=== PATIENT | female | born 1985 | race Caucasian/White ===

== ENCOUNTER → 2017-03-25 | Outpatient (CLI) | payer BC, OTHER ==
[~2017-03-25] MED LIST: CITA20TA17 PO; FLUT16SP12 NS; GADOBUTROL 10mMol/10ml INJECTION IV ONE; PREN1TAB53 PO; SALINE FLUSH 10ml SYRINGE ONE
--- NOTE | 2017-03-25 15:11 | DI ---
EXAM: MRI CERVICAL SPINE W/WO CONTRA LOCATION OF DICTATION: [facility] HISTORY: ITS.REASON: R20.2 Paresthesia of skin left-sided radiculopathy. History Chiari malformation. COMPARISON: No prior studies available for comparison. TECHNIQUE: Multiplanar, multisequence, cervical spine protocol MR imaging with and without contrast of the spine was acquired. CONTRAST: 7.5 ml of Gadavist given Intravenously. FINDINGS: There is preservation of cervical lordosis without subluxation. No acute fractures are demonstrated. Normal signal is present throughout the vertebral bodies. Mild Chiari I for malformation noted. The foramen magnum, subarachnoid space, and cervical spinal cord demonstrate no significant abnormality. There is no evidence for cervical cord syrinx. There is multilevel degenerative disc disease with loss of disc space height and signal at several levels and endplate spurring. The prevertebral and paraspinal soft tissues are without identified abnormality. \E\ Segmental analysis: At the C2-C3 level there is no significant spinal canal or foraminal compromise. At the C3-4 level there is a left paracentral posterior disc osteophyte complex resulting in moderate left lateral recess stenosis. At the C4-5 level there is posterior disc osteophyte complex without significant central spinal stenosis. There is mild left lateral recess narrowing. At the C5-C6 level there is mild disc bulge without significant central spinal or neuroforaminal stenosis. At the C6-C7 level there is mild disc bulge without significant central spinal or neuroforaminal stenosis. At the C7-T1 level there is no significant central spinal or neuroforaminal stenosis. IMPRESSION: 1. Normal alignment of the cervical spine without subluxation or acute fracture. 2. Chiari I malformation suggested. No evidence for cervical cord syrinx 3. Nonspecific T1 signal within the subarachnoid space anterior to the spinal cord at the C2-3 level. This structure does not appear to enhance or result in significant mass effect. The findings could represent artifact. 4. At the C3-4 level there is moderate left lateral recess stenosis. .
== END ==
LOC: IMA.MDS 13:37
PROVIDERS: ATTEND Electrodiagnostic Medicine
DX: M48.02 Spinal stenosis, cervical region (principal); R93.8 Abnormal findings on diagnostic imaging of other specified body structures; R20.2 Paresthesia of skin

== ENCOUNTER 2018-05-19 05:31 | Inpatient (IN) ==
--- OUTSIDE RECORDS SUMMARY | 2018-05-19 05:37 | External Medical Summary | Continuity of Care Document ---
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) w/o 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 Previous Low Transverse - Encounter for suprvsn of normal - , second trimester 27 weeks gestation of - Previous Low Transverse - Encounter for suprvsn of normal - , second trimester 14 weeks gestation of - Previous Low Transverse - Other general symptoms and signs - 19 weeks gestation of - Other specified health status - Previous Low Transverse - Endo, nutritional and metab diseases - comp preg, third tri Encounter for suprvsn of normal - , third trimester 29 weeks gestation of - Previous Low Transverse - Other general symptoms and signs - Encounter for suprvsn of normal - , second trimester 17 weeks gestation of - Previous Low Transverse - Encounter for suprvsn of normal - , second trimester 23 weeks gestation of - Other specified health status - Abnormal glucose complicating - Other general symptoms and signs - Encntr screen for infections w sexl - mode of transmiss Encounter for screening for oth - infec/parastc diseases Encounter for suprvsn of normal - , first trimester Encounter for screening of - mother 10 weeks gestation of - Other specified health status - Other general symptoms and signs - Encounter for suprvsn of normal - , first trimester Other specified health status - Encounter For Screening For - Malformations 19 weeks gestation of - Initiation of Oral Contraceptives - Active Procedures Procedure Date OB Visit No Charge Immuniz admnin, 1 vac, sngl/combo 19 Yrs + TDAP VACCINE >7 IM Automated hemogram (CBC) Glucose test Venpnctr fngr/heel/ear stick routne Results Test Name Date and Time Measure Units Reference Range Abnormal Flag Comments Panel Description: CBC With Differential/Platelet WBC 13:49:00 11.2 x10E3/uL 3.4-10.8 H RBC 13:49:00 4.08 x10E6/uL 3.77-5.28 Hemoglobin 13:49:00 11.8 g/dL 11.1-15.9 Hematocrit 13:49:00 36.2 % 34.0-46.6 MCV 13:49:00 89 fL 79-97 MCH 13:49:00 28.9 pg 26.6-33.0 MCHC 13:49:00 32.6 g/dL 31.5-35.7 RDW 13:49:00 13.3 % 12.3-15.4 Platelets 13:49:00 196 x10E3/uL 150-379 Neutrophils 13:49:00 80 % Not Estab. Lymphs 13:49:00 13 % Not Estab. Monocytes 13:49:00 5 % Not Estab. Eos 13:49:00 1 % Not Estab. Basos 13:49:00 0 % Not Estab. Immature Cells 13:49:00 Neutrophils (Absolute) 13:49:00 9.1 x10E3/uL 1.4-7.0 H Lymphs (Absolute) 13:49:00 1.4 x10E3/uL 0.7-3.1 Monocytes(Absolute) 13:49:00 0.6 x10E3/uL 0.1-0.9 Eos (Absolute) 13:49:00 0.1 x10E3/uL 0.0-0.4 Baso (Absolute) 13:49:00 0.0 x10E3/uL 0.0-0.2 Immature Granulocytes 13:49:00 1 % Not Estab. Immature Grans (Abs) 13:49:00 0.1 x10E3/uL 0.0-0.1 NRBC 13:49:00 Hematology Comments: 13:49:00 Panel Description: Glucose [Mass/volume] in Serum or Plasma --1 hour post 50 g glucose PO Gestational Diabetes Screen 13:49:00 147 mg/dL 65-135 H Advance Directives Directive Yes / No Effective Date File Name Unknown Encounters Encounter Practice Location Reason(s) Diagnoses Date Provider Care Team Description For Visit Members [facility] Previous Low Apr-2 Sobbing Referring In [facility] 7-201 [place]. Provider: Priya MAYBERRY, C-SectionEndo, 8 700 [address] PO Box nutritional and Medical [facility], 1522, metab diseases Center [address] [place], [facility], [facility], triEncounter for Suite Center [id number], suprvsn of normal 120, Drive [place] , third [place], [address], tel:+2 weeks [place], [place] [address], [place], [address]. [place]. tel: tel: [phone] Associates [facility] Abnormal glucose Apr-1 Sobbing Referring In Womens complicating 7-201 [place]. Provider: Priya MAYBERRY, 8 700 [address] [facility], 1522, Center [address], [facility], [facility], Suite Center , 120, Drive [place], [address], tel:+ [place], [address], [place], [address]. [place]. tel: tel: [phone] Christy Munoz Previous Low Apr-1 Sobbing Referring In Womens Transverse 2-201 [place]. Provider: Priya MAYBERRY C-SectionEncounte 8 700 [address] Box r for suprvsn [facility], 1522, normal , Center [address] [place], second [facility], [facility], weeks Suite Center , gestation of 120, Drive [place], [address], tel:+2 K[place]ander, [address], [place], [address]. [place]. tel: tel: [phone] Christy [place] Previous Low Mar-1 Sobbing Referring In Womens Transverse 5-201 [place]. Provider: Priya MAYBERRY, C-SectionEncounte 8 700 [address] Box r for suprn [facility], 1522, normal , Center [address] [place], second [facility], [facility], [id number] weeks Suite Center [id number], gestation of 120, Drive [place] pregnancyOther [place], [address], tel:+2 specified health [place], status [address], [place], [address]. [place]. tel: tel: [phone] Christy [place] Previous Low Dec-1 Sobbing Referring In Womens Transverse 5-201 [place]. Provider: Priya MAYBERRY, C-SectionOther 8 700 [address] PO Box general symptoms Medical [place], 1522, and signs19 weeks Center [address], gestation of Drive, Medical [place], pregnancyOther Suite Center [id number], specified health 120, Drive [place] status [place], [address], tel: [place], [address], [place], [address]. [place]. tel: tel: [phone] Christy Munoz Encounter For Dec- Sobbing Referring In Womens Ultrasound 5-201 [place]. Provider: Priya MAYBERRY, Screening For 8 700 [address] PO Box [id number] Medical [facility], 1522, weeks gestation Center [address] [place], of [facility], [facility], Suite Center , 120, Drive [place], [address], tel: [place], [address], [place], [address]. [place]. tel: tel: [phone] Christy Munoz Previous Low Feb-0 Sobbing Referring In Womens Transverse 5-201 [place]. Provider: Priya MAYBERRY, C-SectionOther 8 700 [address] PO Box general symptoms Medical [facility], 1522, and Center [address] [place], signsEncounter [facility], for suprvsn of Suite Center , normal , 120, Drive [place] second [place], [address], tel: [email or web address] weeks [place], [place] [address], [place], [address]. [place]. tel: tel: [phone] Christy Munoz Previous Low Nov- Sobbing Referring In Womens Transverse 1-201 [place]. Provider: Priya MAYBERRY, C-SectionEncounte 8 700 [address] PO Box r for suprvsn of [facility], 1522, normal , Center [address] [place], second [facility], [id number] weeks Suite Center , gestation of 120, Drive [place], [address], tel: [place], [address], [place], [address]. [place]. tel: tel: [phone] Associates Alexander Other general Jere-0 Henry Referring In Womens symptoms and 2-201 [place]. Provider: Priya MAYBERRY, signsEncounter 8 700 [address] PO Box for suprvsn of [facility], 1522, normal , Center [address], first Matt, [facility], trimesterOther 120, Center [id number], specified health [place], [facility] status [place], [address], tel: [phone] [place] , [place], [address]. tel: tel: [phone] Associates Alexander Olson general Dec-1 Sobbing Referring In Womens symptoms and 4-201 [place]. Provider: Priya MAYBERRY signsEncntr 7 700 [address] PO Box screen for [facility], 1522, infections w sexl Center [address], mode of Drive, [facility], transmissEncounte Suite Center , r for screening 120, Drive [place] for oth [place], [address], tel: infec/parastc [place], [place], diseasesEncounter [address], [place], [address]. for [facility]. tel: normal , tel: [phone] first [phone] trimesterEncounte r for screening of [id number] weeks gestation of pregnancyOther specified health status Associates [facility] Encntr for knot cutter Jun- Duarte Referring In Womens exam (general) 5-201 [place]. Provider: Priya MAYBERRY, (routine) w/o abn 6 700 [place] PO Box findings Medical [place] 1522, Center A, [address], [facility], 120, Center [id number], [place], [facility], [address], tel: [phone] [place] , [place], [address]. tel: tel: [phone] Christy [place] Sep-0 [place] In Womens 6-201 [place]. Priya MAYBERRY, 2 700 PO Box Medical 1522, Center Dr Mark, [facility] [place], 120, [id number], [facility], tel: [phone] , . tel:[phone] Family History Family Member Diagnosis Age At Onset No family history of Diabetes No family history of Hypertension No family history of Osteoporosis No family history of Breast Cancer No family history of Thyroid Disorder No family history of Kidney Problems No family history of Colon Cancer Maternal Grandmother Cardiovascular Disease No family history of Lung Disease No family history of Stroke No family history of Ovarian Cancer No family history of Epilepsy Immunizations Vaccine Date Status Comments Tdap completed Source: New Immunization Record Payers Payer name Insurance type Covered democrat ID Authorization(s) BCBS [place] [id number] BCBS [facility] [id number] BCBS [place] [id number] Social History Type Description Quantity Date Captured Alcohol Use Details No Caffeine Use Details Unknown Tobacco Use Status Unknown Smoking Status Never smoker Vital Signs Date / Height Weight BMI Pulse Blood Temperature Respiratory Body Head BMI Time: Rate Pressure Rate Surface Circumference percentile Area 195.60 30.6 116/2018 lbs 3 mm[Hg] 1:16 kg/m PM eter (2) Chief Complaint And Reason For Visit Unknown Chief Complaint And Reason For Visit Reason For Referral Reason For Referral Unknown Plan Of Care Date Type Action Status Appointment Harriet Graves BOOKED Appointment Harriet Graves BOOKED Appointment Harriet Graves [facility] [place]/S- MB BOOKED Assist Future Order: Lab Order Pap Smear With HPV Reflex If ASCUS Ordered (WPMPap1), Collected on: Future Order: Lab Order Pap Smear With High Risk HPV Ordered (WPMPap2) Future Order: Radiology Order Complete OB Ultrasound > 14 Ordered Weeks ([id number]) Date Type Problem Goal Intervention Status Start Date Unknown. History Of Present Illness Encounter Date Complaint History Of Present Illness This patient has no known history of present illness Functional Status Encounter Date Functional Assessment Cognitive Assessment Unknown Medications Administered Medication Instructions Dosage Effective Dates (start - stop) Status Comments Drug Treatment Unknown Instructions Date Instruction Additional Information indications for ultrasound influenza vaccine environmental / work hazards HIV and other routine tests risk factors identified by history anticipated course of care nutrition and weight gain counseling, special diet toxoplasmosis precautions (cats / raw meat) sexual activity exercise travel use of any medications (including supplements, vitamins, herbs, OTC drugs) domestic violence seat belt use childbirth classes / hospital facilities hospital registration genetic testing
--- OUTSIDE RECORDS SUMMARY | 2018-05-19 05:38 | External Medical Summary | Continuity of Care Document ---
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 Provider: Gladys EnamoradoSectionKilliano, 8 700 [address] PO Box nutritional and Medical [facility], 1522, metab diseases Center 700 [place], [facility] preg, third [facility], [facility] Suite Center [id number], suprvsn of normal 120, Drive [place] , third [place], [address], tel:+2 [id number] weeks [place], [address] [place] [address], [place], [address]. [place]. tel: tel: [phone] Christy Munoz Feb- Sobbing In Womens 8-201 [place]. Priya MAYBERRY, 8 700 PO Box Medical 1522, Center [place], [facility], [place], [address] [id number], 120, [place], tel: [place], [address], [place]. tel: [phone] Associates [facility] Pedraza Abnormal glucose Apr-1 Sobbing Referring In Womens complicating 7-201 [place]. Provider: Priya MAYBERRY, 8 [address] Box [facility], 1522, Center 700 [place], [facility], [facility], Suite Center [id number], 120, Drive [place], [address], tel:+ SYED, [place], [address], [place], [address]. [place]. tel: tel: [phone] Associates Alexander Previous Low Apr-1 Sobbing Referring In Womens Transverse 2-201 [place]. Provider: Priya MAYBERRY, C-SectionEncounte 8 700 [address] PO Box [facility], 1522, normal , Center 700 [place], [facility], [facility], [id number] weeks Suite Center , gestation of 120, Drive [place], [address], tel:+ SYED, [place], [address], [place], [address]. [place]. tel: tel: [phone] Associates Alexander Previous Low Mar-1 Sobbing Referring In Womens Transverse 5-201 [place]. Provider: Priya MAYBERRY, C-SectionEncounte 8 700 [facility] Box r for [facility], 1522, normal , Center 700 [place], [facility], [facility], [id number] weeks Suite Center [id number], gestation of 120, Drive [place] pregnancyOther [place], [address], tel:+ specified health [place], [place], [place] [address], [place], [address]. [place]. tel: tel: [phone] Associates Alexander Previous Low Feb-1 [place] Referring In Womens Transverse 5-201 [place]. Provider: Priya MAYBERRY, C-SectionOther 8 700 [address] PO Box general symptoms Medical [facility], 1522, and signs19 weeks Center [address] [place], gestation of Drive, Medical [place], pregnancyOther Suite Center [id number], specified health 120, Drive [place] status [place], [address], tel: SYED, [place], [address], [place], [address]. [place]. tel: tel: [phone] Associates Alexander Encounter For Feb-1 Sobbing Referring In Womens Ultrasound 5- [place]. Provider: Health JEFE, Screening For 8 700 [address] PO Box [id number] Medical [facility], 1522, weeks gestation Center 700 [place], of [facility], Suite Center [id number], 120, Drive [place], [address], tel:+ [place], [address], [place], [address]. [place]. tel: tel: [phone] Associates Alexander Previous Low Feb-0 Sobbing Referring In Womens Transverse 5-201 [place]. Provider: Priya MAYBERRY, C-SectionOther 8 700 [address] PO Box general symptoms [facility], 1522, and Center 700 [facility], for suprvsn of Suite Center [id number], normal , 120, Drive [place] second [place], [address], tel:+ weeks [place], [place] [address], [place], [address]. [place]. tel: tel: [phone] Associates Alexander Previous Low Jere-1 Sobbing Referring In Womens Transverse - [place]. Provider: Priya MAYBERRY, C-SectionEncounte 8 700 [address] PO Box r for suprvsn of [facility], 152, normal , Center 700 [place], [facility], [id number] weeks Suite [address] [id number], gestation of 120, Drive [place], [address], tel: SYEDAlexander, [address], [place], [address]. [place]. tel: tel: [phone] Associates Alexander Other general Jere-0 Henry Referring In Womens symptoms and 2-201 [place]. Provider: Priya MAYBERRY signsEncounter 8 700 [address] PO Box for suprvsn of [facility], 1522, normal , Center [facility] first Vernell Flores, [facility], trimesterOther 120, Center [id number], specified health [place], [facility] status [place], [address], tel:[phone] [place], , [place], [address]. tel: tel:+ [phone] Associates Alexander Other general [place] Referring In Womens symptoms and 201 [place]. Provider: Health JEFE, signsEncntr 7 700 [address] PO Box screen for Medical [place], 1522, infections w sexl Center 700 [place], mode of Drive, Medical [place], transmissEncounte Suite [address] [id number], r for screening 120, Drive [place] for oth [place], [address], tel:+ infec/parastc [place], [place], diseasesEncounter [address], [place], . for suprvsn of . 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 Provider: Health JEFE, (routine) w/o abn 6 700 [address] PO Box findings Medical [place] 1522, Center A, [address], [facility], 120, Center [id number], [place], [facility], [address], tel:+ [phone] [place], , [place], [address]. tel: tel: [phone] Christy [place] Sep-0 [place] In Womens -201 [place]. Health JEFE, 2 700 PO Box Medical 1522, Center Dr Mark, [facility], 120, , [facility], tel: [phone] [address] , [place]. tel: [phone] Family History Family Member Diagnosis Age At [...] Record Payers Payer name Insurance type Covered green party ID Authorization(s) BCBS Out Of [place] [id number] BCBS [facility] [id number] BCBS Out Of [place] [id number] Social History Type Description Quantity Date Captured Unknown Vital Signs Date / Height Weight BMI Pulse Blood Temperature Respiratory Body Head BMI Time: Rate Pressure Rate Surface Circumference percentile Area Unknown Chief Complaint And Reason For Visit Unknown Chief Complaint And Reason For Visit Reason For Referral Reason For Referral Unknown Plan Of Care Date Type Action Status Appointment Harriet Graves BOOKED Appointment Harriet Graves BOOKED Appointment Harriet Graves [facility] [place] R C/S- MB BOOKED Assist Future Order: Lab Order Pap Smear With HPV Reflex If ASCUS Ordered (WPMPap1), Collected on: Future Order: Lab Order Pap Smear With High Risk HPV Ordered (WPMPap2) Future Order: Radiology Order Complete OB Ultrasound > 14 Ordered Weeks ([id number]) Date Type Problem Goal Intervention Status Start [...]
--- OUTSIDE RECORDS SUMMARY | 2018-05-19 05:38 | External Medical Summary | Continuity of Care Document ---
:1985 Author Organization [facility] Address [address] [place], [place] [id number] Phone Care Team Providers Name Role Phone [...] (start - stop) Clinical Status Encntr for ob/gyn exam (general) - (routine) w/o 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 Previous Low Transverse - Encounter for suprvsn of normal - , third trimester Encounter For Screening For - Streptococcus B 35 weeks gestation of - Previous Low Transverse [...] gestation of - Previous Low Transverse - Endo, nutritional and metab diseases - comp preg, third tri Encounter for suprvsn of normal - , third trimester 37 weeks gestation of - Previous Low Transverse - Encounter for suprvsn of normal - , third trimester 31 weeks gestation of - Previous Low Transverse - Other general symptoms and signs - Encounter for suprvsn of normal - , second trimester 17 weeks gestation of - Previous Low Transverse - Endo, nutritional and metab diseases - comp preg, third tri 36 weeks gestation of - Previous Low Transverse - Endo, nutritional and metab diseases - comp preg, third tri Abnormal glucose complicating - 33 weeks gestation of - Previous Low Transverse [...] Procedures Procedure Date OB Visit No Charge bogdan Cruz, screen Results Test Name Date and Time Measure Units Reference Range Abnormal Flag Comments Panel Description: Strep Gp B Culture Strep Gp B Positive Negative A Centers for Disease Control Culture 14:40:00 and Prevention (CDC) and [place] Congressof Obstetricians and Gynecologists (ACOG) guidelines for prevention ofperinatal group B streptococcal (GBS) disease specify co-collection ofa vaginal and rectal swab specimen to maximize sensitivity of GBSdetection. Per the CDC and ACOG, swabbing both the lower vagina andrectum substantially increases the yield of detection compared withsampling the vagina alone. .Penicillin G, ampicillin, or cefazolin are indicated for intrapartumprophylaxis of GBS colonization. Reflex susceptibilitytesting should be performed prior to use of clindamycin only on GBSisolates from penicillin-allergic women who are considered a high riskfor anaphylaxis. Treatment with vancomycin without additional testingis warranted if resistance to clindamycin is noted. Advance Directives Directive Yes / No Effective Date File Name Unknown Encounters Encounter Practice Location Reason(s) Diagnoses Date Provider Care Team Description For Visit Members Christy Munoz Previous Low Barry-2 Sobbing Referring In [facility] [place]. Provider: Gladys EnamoradoSectionRuth, 8 [address] [place] nutritional and Medical [facility], metab diseases Center [address] [place], comp preg, [facility], triEncounter for Suite Center [id number], suprvsn of normal 120, Drive [place] , third [place], [address], tel:+2 weeks [place], 7[address]62 [place] [address], [place], [address]. [place]. tel: tel: [phone] Christy Munoz Previous Low Barry-1 Sobbing Referring In [facility] 201 [place]. Provider: Gladys EnamoradoSectionKilliano, 8 [address] [employer] nutritional and Medical [facility], 1522, metab diseases Center [address] [place], comp preg, [facility], tri36 weeks Suite Center [id number], gestation of 120, Drive [place], [address], tel: SYEDAlexander, [address], [place], [address]. [place]. tel: tel: [phone] Associates Alexander Previous Low Barry-0 Sobbing Referring In [facility] Transverse 7-201 [place]. Provider: Nguyễn Enamorado-SectionEncounte [address] PO Box r for suprvsn [facility], 1522, normal , Center [address] [place], third [facility], [facility], trimesterEncounte Suite Center [id number], r For 120, Drive [place] Screening For [place]oz, [address], tel: Streptococcus B35 Alexander LYNCH, weeks gestation [address], [place], [address]. of [place]. tel: tel: [phone] Associates Alexander Previous Low May-2 Sobbing Referring In [facility] Transverse 5-201 [place]. Provider: Slava Enamorado, [address] PO Box nutritional and Medical [facility], 1522, metab diseases Center [address] [place], comp preg, third Drive, [facility], triAbnormal Suite Center [id number], glucose 120, Drive [place] complicating [place], [address], tel:+ [id number] weeks [place]ED[place], [place] [address], [place], [address]. [place]. tel: tel: [phone] Associates Alexander Previous Low May-1 Sobbing Referring In [facility]om[facility] Transverse 1-201 [place]. Provider: Gladys EnamoradoSectionEncounte [address] PO Box r for [facility], 1522, normal , Center [address] [place], third [id number], [facility] [place], weeks gestation Suite Center [id number], of 120, Drive [place], [address], tel:+ [place], [address], [place], [address]. [place]. tel: tel: [phone] Associates Alexander Previous Low Apr-2 Sobbing Referring In [facility]om[facility] Transverse 7-201 [place]. Provider: Gladys EnamoradoSectionEndo, 8 [address] PO Box nutritional and Medical [facility], 1522, metab diseases Center [address] [place], [facility] preg, third Drive, [facility], triEncounter for Suite Center , suprvsn of normal 120, Drive [place] , third [place], [address], tel:+ [id number] weeks [place], [place] [address], [place], [address]. [place]. tel: tel: [phone] Associates [facility] Abnormal glucose Apr-1 Sobbing Referring In Womens complicating 7-201 [place]. Provider: Health PA, [address] PO Box [facility], 1522, Center [address] [place], [facility], [facility], Suite Center , 120, Drive [place], [address], tel:+ [place] L[place]CH, [address], [place], [address]. [place]. tel: tel: [phone] Christy Munoz Previous Low Apr-1 Sobbing Referring In Wom[facility] Transverse 2-201 [place]. Provider: Health JEFE, C-SectionEncounte 8 [address] PO Box r for suprvsn of [facility], 1522, normal , Center 700 [place], second [facility], [facility], weeks Suite Center , gestation of 120, Drive [place], [address], tel:+ [place], [address], [place], [address]. [place]. tel: tel: [phone] Christy Munoz Previous Low Mar-1 Sobbing Referring In Wom[facility] Transverse 5-201 [place]. Provider: Health JEFE, C-SectionEncounte 8 [address] PO Box r for suprvsn [facility], 1522, normal , Center 700 [place], second [facility], [facility], [id number] weeks Suite Center , gestation of 120, Drive US pregnancyOther Munoz, [address], tel:2 specified health [place] LYNCH, status [address], [place], [address]. [place]. tel: tel: [phone] Christy Munoz Previous Low Feb-1 Sobbing Referring In [facility] Transverse 5-201 [place]. Provider: Health [place], C-SectionOther [address] PO Box general symptoms Medical [place], 1522, and signs19 weeks Center [address] [place], gestation of Drive, [facility], pregnancyOther Suite Center [id number], specified health 120, Drive [place] status [place], [address], tel:+ SYEDAlexander, [address], [place], [address]. [place]. tel: tel: [phone] Christy Munoz Encounter For Dec- Sobbing Referring In [facility] [place]. Provider: Health [place], Screening For 8 [address] PO Box [id number] Medical [place], 1522, weeks gestation Center [address] [place], of [facility], Suite Center , 120, Drive [place] Munoz, [address], tel:+ [place] LYNCH, [address], [place], [address]. [place]. tel: tel: [phone] Christy Munoz Previous Low Dec-0 Sobbing Referring In Womens Transverse -201 [place]. Provider: Health JEFE, C-SectionOther 8 [address] PO Box general symptoms Medical [facility], 1522, and Center [address] [place], signsEncounter [facility], [facility], for suprvsn of Suite Center , normal , 120, Drive US second Munoz, [address], tel:+ [id number] weeks [place], [place] [address], [place], [address]. [place]. tel: tel: [phone] Christy Munoz Previous Low Sobbing Referring In [facility] Transverse - [place]. Provider: Health JEFE, C-SectionEncounte 8 [address] PO Box r for suprvsn of [facility], 1522, normal , Center 700 [place], second [facility], [facility], [id number] weeks Suite Center [id number], gestation of 120, Drive [place] Mun[place], [address], tel:+ [place]CH, [address], [place], [address]. [place]. tel: tel: [phone] Christy Munoz Other general Jere-0 Henry Referring In Womens symptoms and 2 [place]. Provider: Priya MAYBERRY, signsEncounter [address] Box for suprvsn of [facility], 1522, normal , Center 700 first Vernell Flores, [facility], trimesterOther 120, Center , specified health Munoz, [facility] status [place], [address], tel:[phone] [place]oz, , [place], [address]. tel: tel:[phone] Associates Alexander Other Sobbing Referring In Womens symptoms and Le[place]. Provider: Priya MAYBERRY, signsEncntr 7 [address] PO Box screen for Medical [facility], 1522, infections w sexl Center 700 [place], mode of Drive, [facility], transmissEncounte Suite Center , r for screening 120, Drive [place] [facility], [address], tel:+ infec/parastc [place], [place], diseasesEncounter [address], [place], [address]. for suprvsn [facility]. tel:+ normal , tel: [phone] first [phone] trimesterEncounte r for screening of ummsla34 weeks gestation of pregnancyOther specified health status Associates Alexander Encntr for ob/gyn Duarte Referring In Womens exam (general) Lynda. Provider: Priya MAYBERRY, (routine) w/o abn 6 [address] PO Box findings Medical [facility] 1522, Center A, S[address], [facility], 120, Center , Munoz, [facility], [address], tel:+ [phone] [place], , [place], [address]. tel: tel: [phone] Christy Munoz Sep-0 Bibiana In Womens 6-201 [place]. Priya MAYBERRY, 2 700 PO Box Medical 1522, Center Dr Mark, [facility] [place], 120, [id number], [facility] [place], tel:[phone] , [place]. tel: [phone] Family History Family Member Diagnosis Age At [...] Record Payers Payer name Insurance type Covered constitution party ID Authorization(s) [employer] [facility] [id number] [facility] [facility] [id number] [employer] [facility] [id number] Social History Type Description Quantity Date Captured Alcohol Use Details No Caffeine Use Details Unknown Tobacco Use Status Unknown Smoking Status Never smoker Vital Signs Date / Height Weight BMI Pulse Blood Temperature Respiratory Body Head BMI Time: Rate Pressure Rate Surface Circumference percentile Area 204.70 32.0 lbs 6 2:06 kg/m PM eter (2) Chief Complaint And Reason For Visit Unknown Chief Complaint And Reason For Visit Reason For Referral Reason For Referral Unknown Plan Of Care Date Type Action Status Appointment Harriet Graves BOOKED Appointment Harriet Graves [facility] R C/S- MB BOOKED Assist Future Order: Lab Order Pap Smear With HPV Reflex If ASCUS Ordered ([id number]), Collected on: Future Order: Lab Order Pap Smear With High Risk HPV Ordered ([id number]) Future Order: Radiology Order Complete OB Ultrasound > 14 Ordered Weeks ([id number]) Date Type Problem Goal Intervention Status Start [...]
--- OUTSIDE RECORDS SUMMARY | 2018-05-19 05:38 | External Medical Summary | Continuity of Care Document ---
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 Encounter For Screening For - Malformations 19 weeks gestation of - Previous Low Transverse - Encounter for suprvsn of normal - , second trimester 14 weeks gestation of - Previous Low Transverse - Other general symptoms and signs - 19 weeks gestation of - Other specified health status - Previous Low Transverse - Other general symptoms and signs - Encounter for suprvsn of normal - , second trimester 17 weeks gestation of - Other general symptoms and signs - [...] first trimester Other specified health status - Initiation of Oral Contraceptives - Active Procedures Procedure Date Ultrasound exam of preg uterus, complete Results Test Name Date and Time Measure Units Reference Range Abnormal Flag Comments Unknown Advance Directives Directive Yes / No Effective Date File Name Unknown Encounters Encounter Practice Location Reason(s) Diagnoses Date Provider Care Team Description For Visit Members Christy Munoz Previous Low Feb-1 Sobbing [facility] [place] Provider: Priya MAYBERRY, C-SectionOther [address] PO Box general symptoms Medical [place], 1522, and signs19 weeks Center 700 [place], gestation of [facility], pregnancyOther Suite Center [id number], specified health 120, Drive [place] status [place], [address], tel:+4312 SYEDAlexander, [address], [place], [address]. [place]. tel:+ tel: [phone] Christy Munoz Encounter For Feb-1 Sobbing Referring In [facility]om[facility] Ultrasound [place]. Provider: Priya MAYBERRY, Screening For 8 [address] PO Box [id number] Medical [place], 1522, weeks gestation Center 700 [place], of [facility], Suite Center [id number], 120, Drive US [facility] [address], tel:+3162 SYEDAlexander, [address], [place], [address]. [place]. tel:+316 tel: [phone] Christy Munoz Previous Low Feb-0 Sobbing Referring In Womens [facility] [place]. Provider: Priya MAYBERRY, C-SectionOther 8 [address] PO Box general symptoms Medical [place], 1522, and Center 700 [place], signsEncounter [facility], for suprvsn of Suite Center [id number], normal , 120, Drive [place] second Munoz, [address], tel: [id number] weeks [place], [place] [address], [place], [address]. [place]. tel: tel: [phone] Associates Alexander Previous Low Jere-1 Sobbing Referring In Womens Transverse 1-201 [place]. Provider: Priya MAYBERRY, C-SectionEncounte 8 [address] PO Box [facility], 1522, normal , Center 700 [place], [facility], [facility], [id number] weeks Suite Center [id number], gestation of 120, Drive [place], [address], tel: [place]CH, [address], [place], [address]. [place]. tel: tel: [phone] Associates Alexander Other general Jere-0 Henry Referring In Womens symptoms and 2-201 [place]. Provider: Priya MAYBERRY signsEncountquincy 8 [address] PO Box for suprvsn of [facility], 1522, normal , Center [address], [facility], [facility], trimesterOther 120, Center , specified health [place], [facility] [place] status [place], [address], tel: [phone] [place] , [place], [address]. tel: tel: [phone] Associates Alexander Other general Dec-1 Sobbing Referring In Womens symptoms and 4-201 [place]. Provider: Priya MAYBERRY signsEncntr 7 [address] PO Box screen for [facility], 1522, infections w sexl Center 700 [place], mode of Drive, [facility], transmissEncounte Suite Center [id number], r for screening 120, Drive [place] for oth [place], [address], tel: infec/parastc Alexander LYNCH, diseasesEncounter [address], [place], [address]. for suprvsn of . 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 Provider: Health JEFE, (routine) w/o abn 6 [address] PO Box findings Medical [place] 1522, Center A, [address], [facility] Medical [place], 120, Center [id number], Munoz, [facility], [address], tel: [phone] [facility] [address] , . [place], [address]. tel: tel: [phone] [facility] Munoz Sep-0 Ernestoeman In Womens 6-201 Umm. Health JEFE, 2 700 PO Box Medical 1522, Center Dr Mark, [facility], 120, [id number], [facility], tel: [phone] , . tel: [phone] Family History Family Member Diagnosis Age At [...] of Epilepsy Immunizations Vaccine Date Status Comments Unknown Payers Payer name Insurance type Covered green party ID Authorization(s) [facility] [id number] [facility] [id number] Social History Type Description Quantity Date Captured Unknown Vital Signs Date / Height Weight BMI Pulse Blood Temperature Respiratory Body Head BMI Time: Rate Pressure Rate Surface Circumference percentile Area Unknown Chief Complaint And Reason For Visit Unknown Chief Complaint And Reason For Visit Reason For Referral Reason For Referral Unknown Plan Of Care Date Type Action Status Appointment Harriet Graves BOOKED Future Order: Radiology Order Complete OB Ultrasound > 14 Ordered Weeks ([id number]) Future Order: Lab Order Pap Smear With HPV Reflex If ASCUS Ordered ([id number]), Collected on: Future Order: Lab Order Pap Smear With High Risk HPV Ordered (WPMPap2) Date Type Problem Goal Intervention Status Start [...]
--- OUTSIDE RECORDS SUMMARY | 2018-05-19 05:38 | External Medical Summary | Continuity of Care Document ---
:1985 Author Organization [facility] Address [address] [place], [place] [address] Phone Care Team Providers Name Role Phone Indira Gloria MD Unavailable Unavailable Allergies, Adverse Reactions, Alerts Substance Reaction Severity Status No Known Drug Allergies Unknown Active Medications Medication Instructions Dosage Effective Dates Status Comments (start - stop) Flonase 50 spray 1 spray by Not Available - Active mcg/actuation intranasal route Nasal [place] every day in each nostril Zyrtec 10 mg take 1 tablet by 10 MG - Active tablet oral route every day Problems Condition Effective Dates (start - stop) 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 JEFE [address] [place] [address] 1522, Medical [place], [place], [id number], [place] Dick 120, tel:[phone] Alexander, [facility], [id number], [place]. 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 Provider: JASON MAYBERRY (general) [address] 1522, (routine) Medical [facility] [place], w/o abn Center , 700 Medical [id number], [place] findings Dick 120, Center tel:+[phone] Alexander, Drive [address] [place], [facility], [id number], [place]. [address]. tel:821 tel:[phone] Associates In Munoz Jul- [facility] -2011 Angela. MAYBERRY, [address] 1522, [place], [place], [place] , [id number], [place] Dick 120, tel:[phone] Alexander, 6790 [place], [id number], [place]. tel:[phone] Family History Family Member Diagnosis Age At [...] Unknown Payers Payer name Insurance type Covered constitution party ID Authorization(s) [facility] [id number] Social History Type Description Quantity Date Captured Unknown Vital Signs Date / Height Weight BMI Pulse Blood Temperature Respiratory Body Head BMI Time: Rate Pressure Rate Surface Circumference percentile Area Unknown Chief Complaint And Reason For Visit Unknown Chief Complaint And Reason For Visit Reason For Referral Reason For Referral Unknown Plan Of Care Date Type Action Status Future Order: Lab Order Pap Smear With High Risk HPV (WPMPap2) Ordered Date Type Problem Goal Intervention Status Start Date Unknown. History Of Present Illness Encounter Date Complaint History Of Present Illness This patient has no known history of present illness Functional Status Encounter Date Functional Assessment Cognitive Assessment Unknown Medications Administered Medication Instructions Dosage Effective Dates (start - stop) Status Comments Drug Treatment Unknown Instructions Date Instruction Additional Information Unknown
--- OUTSIDE RECORDS SUMMARY | 2018-05-19 05:38 | External Medical Summary | Continuity of Care Document ---
:1985 Author Organization [facility] Address [address] [place], [place] [id number] Phone Care Team Providers Name Role Phone Indira Gloria MD Unavailable Unavailable Allergies, Adverse Reactions, Alerts Substance Reaction Severity Status No Known Drug Allergies Unknown Active Medications Medication Instructions Dosage Effective Dates Status Comments (start - stop) Flonase 50 spray 1 spray by - Active mcg/actuation Nasal intranasal route Wallace every day in each nostril Zyrtec 10 mg tablet take 1 tablet by oral 10 MG - Active route every day Problems Condition Effective Dates (start - stop) Clinical Status 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 Other general symptoms and signs - Encntr [...] Oral Contraceptives - Active Procedures Procedure Date Initial OB Visit No Charge - 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 Infct antign, chlamydia trac, ampl Neisseria Gonorrhoeae, Amplification Results Test Name Date and Time Measure Units Reference Range Abnormal Flag Comments Panel Description: OBSTETRIC PANEL WHITE BLOOD CELL 9.8 Thousand/uL 3.8-10.8 N COUNT 13:45:00 RED BLOOD CELL 4.79 Million/uL 3.80-5.10 N COUNT 13:45:00 HEMOGLOBIN 13.7 g/dL 11.7-15.5 N 13:45:00 HEMATOCRIT 41.6 % 35.0-45.0 N 13:45:00 MCV 86.8 fL 80.0-100.0 N 13:45:00 MCH 28.6 pg 27.0-33.0 N 13:45:00 MCHC 32.9 g/dL 32.0-36.0 N 13:45:00 RDW 12.6 % 11.0-15.0 N 13:45:00 PLATELET COUNT 243 Thousand/uL 140-400 N 13:45:00 MPV 10.4 fL 7.5-12.5 N 13:45:00 ABSOLUTE 7556 cells/uL 3126-9202 N NEUTROPHILS 13:45:00 ABSOLUTE 1666 cells/uL 850-3900 N LYMPHOCYTES 13:45:00 ABSOLUTE 470 cells/uL 200-950 N MONOCYTES 13:45:00 ABSOLUTE 69 cells/uL 15-500 N EOSINOPHILS 13:45:00 ABSOLUTE 39 cells/uL 0-200 N BASOPHILS 13:45:00 NEUTROPHILS 77.1 % N 13:45:00 LYMPHOCYTES 17.0 % N 13:45:00 MONOCYTES 4.8 % N 13:45:00 EOSINOPHILS 0.7 % N 13:45:00 BASOPHILS 0.4 % N 13:45:00 ANTIBODY SCREEN, NO ANTIBODIES N RBC W/REFL ID, 13:45:00 DETECTED Reference range TITER AND AG No antibodies detected This assay is a screening test for the detection of red blood cell antibodies. The test is not to be used for pretransfusion screening or for the medical management of an alloimmunized . ABO GROUP A 13:45:00 RH TYPE RH(D) 13:45:00 POSITIVE RPR (DX) W/REFL NON-REACTIVE NON-REACTIV N TITER AND 13:45:00 E CONFIRMATORY TESTING HEPATITIS B NON-REACTIVE NON-REACTIV N SURFACE ANTIGEN 13:45:00 E RUBELLA ANTIBODY 0.94 index L Index (IGG) 13:45:00 Interpretation ----- <0.90 Not consistent with Immunity 0.90-0.99 Equivocal > or=1.00 Consistent with Immunity The presence of rubella IgG antibody suggests immunization or past or current infection withrubella virus.Test performed at [facility] [id number] [place] [address]Vidyvxn r: FRANCISCA ACEVEDO DO,MPH Panel Description: Varicella zoster virus IgG Ab [Units/volume] in Serum by Immunoassay VARICELLA ZOSTER 2019.00 index N Index VIRUS ANTIBODY 13:45:00 Interpretation --------- (IGG) <135.00 Negative - Antibody not detected 135.00 - 164.99 Equivocal > yx=713.00 Positive - Antibody detected A positive result indicates that the patient has antibody to VZV but does not differentiate between an active or past infection. The clinical diagnosis must be interpreted in conjunction with the clinical signs and symptoms of the patient. This assay reliably measures immunity due to previous infection but may not be sensitive enough to detect antibodies induced by vaccination. Thus, a negative result in a vaccinated individual does not necessarily indicate susceptibility to VZV infection.Test performed at [facility] [id number] [facility] [place] [address]Rznarqfi: FRANCISCA ACEVEDO DO,MPH Panel Description: HIV 1/2 ANTIGEN/ANTIBODY,FOURTH GENERATION W/RFL HIV NON-REACTIVE NON-REACTIVE N HIV-1 antigen and HIV-1/HIV- 2 antibodies were AG/AB, 13:45:00 notdetected. There is no laboratory evidence of 4TH GEN HIVinfection. PLEASE NOTE: This information has been disclosed toyou from records whose confidentiality may beprotected by state law. If your state requires suchprotection, then the state law prohibits you frommaking any further disclosure of the informationwithout the specific written consent of the personto whom it pertains, or as otherwise permitted by law.A general authorization for the release of medical orother information is NOT sufficient for this purpose. For additional information please refer tohttp://education.Dreamitize/faq/TAO918(This link is being provided for informational/educational purposes only.) The performance of this assay has not been clinicallyvalidated in patients less than 2 years old. Test performed at [place] [address]Yceyxjjj: FRANCISCA ACEVEDO DO,MPH Panel Description: TSH W/REFLEX TO FT4 T4, FREE 13:45:00 1.4 ng/dL 0.8-1.8 N TSH W/REFLEX TO 13:45:00 0.35 mIU/L L Reference Range FT4 > or=20 Years 0.40-4.50 Ranges First trimester 0.26-2.66 Second trimester 0.55-2.73 Third trimester 0.43-2.91Test performed at [facility] [id number] [place] [address]Bzwusedb: FRANCISCA ACEVEDO DO,MPH Panel Description: Bacteria identified in Urine by Culture CULTURE, URINE, 13:48:00 SEE NOTE CULTURE, URINE, ROUTINE ROUTINE MICRO NUMBER: [id number] TEST STATUS: FINAL SPECIMEN SOURCE: URINE SPECIMEN QUALITY: ADEQUATE RESULT: Single organism less than 10,000 CFU/mL isolated. These organisms, commonly found on external and internal genitalia, are considered colonizers. No further testing performed.REPORT COMMENT:RTest performed at [facility] [id number] [place] [address]Jtouzqqv: FRANCISCA ACEVEDO DO,MPH Panel Description: CHLAMYDIA/N. GONORRHOEAE RNA, TMA CHLAMYDIA NOT DETECTED NOT DETECTED N TRACHOMATIS RNA, 15:41:00 TMA NEISSERIA NOT DETECTED NOT DETECTED N GONORRHOEAE RNA, 15:41:00 TMA [id number] SEE NOTE This test was 15:41:00 performed using the APTIMA COMBO2 Assay([employer] The analytical performance characteristics of this assay, when used to test SurePath specimens havebeen determined by [employer]. REPORT COMMENT:FASTING:UNKNO WNTest performed at [facility] [id number] [place] [address]Osoxuwgs: FRANCISCA ACEVEDO DO,MPH Advance Directives Directive Yes / No Effective Date File Name Unknown Encounters Encounter Practice Location Reason(s) Diagnoses Date Provider Care Team Description For Visit Members [facility] Henry Referring In Womens symptoms and Susan. Provider: Priya MAYBERRY signsEncounter for [address] suprvsn of [facility], 152, , first Center [address], trimester[address], [facility], specified health 120, Center [id number], status [facility], [address], tel:[phone] [place], , . [place], [address]. tel: tel: [phone] [facility] Sobbing Referring In Women symptoms and [place]. Provider: Priya MAYBERRY signsEncntr screen [address] for infections [facility], 152, sexl mode of Center [address], [facility], for screening for Suite Center [id number], [facility] infec/parastc [address], Drive [facility], [address], tel:+[phone] for suprvsn of [place], [place], [phone] normal , [address], [place], [address]. [facility]. 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 Provider: Priya MAYBERRY, w/o 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 6 [address], Center A, [address], [facility], 120, Center [id number], [place], [facility], [address], tel:[phone] [place], 762304 , . [place], [address]. tel: tel: [phone] Associates [place] Sep-0 [place] In Womens 6-201 Umm. Priya MAYBERRY, [address], [address], [facility], 120, [id number], [facility], tel: [phone] , . tel: [phone] Family History Family Member Diagnosis Age At [...] Unknown Payers Payer name Insurance type Covered alliance party ID Authorization(s) [facility] [id number] Social History Type Description Quantity Date Captured Alcohol Use Details No Caffeine Use Details Unknown 2 cups per day Tobacco Use Status Never smoked tobacco Smoking Status Never smoker Vital Signs Date / Height Weight BMI Pulse Blood Temperature Respiratory Body Head BMI Time: Rate Pressure Rate Surface Circumference percentile Area 9 2:27 kg/m PM eter (2) 176.40 27.6 120/2017 lbs 3 mm[Hg] 2:28 kg/m PM eter (2) 9 2:27 kg/m PM eter (2) Chief Complaint And Reason For Visit Unknown Chief Complaint And Reason For Visit Reason For Referral Reason For Referral Unknown Plan Of Care Date Type Action Status Appointment Harriet Graves BOOKED Future Order: Lab Order Pap Smear With [...]
[2018-05-19] MEDS ORDERED: CEFAZOLIN PREMIX (MC ONLY) 2 GM/50 ML BAG IV ONE (05:44)
[2018-05-19] MEDS ORDERED: CITRIC ACID/SODIUM CITRATE 30ml PO ONE (05:44)
[2018-05-19] MEDS ORDERED: NOZIN NASAL SWAB NAS ONE (05:44)
[2018-05-19] MEDS ORDERED: FAMOTIDINE PB 20 MG/50 ML BAG IV ONE (05:44)
[2018-05-19] MEDS ORDERED: LR 1,000 ML IV SCH (05:45)
[2018-05-19] MEDS ORDERED: NOZIN NASAL SWAB NAS SCH (06:00)
[2018-05-19 06:20] VITALS: BMI 28.5
[2018-05-19] MEDS ORDERED: ONDANSETRON 4 MG/2 ML INJECTION ONE (07:05)
[2018-05-19] MEDS ORDERED: MORPHINE SULFATE PF 5mg/10ml INJ (Duramorph) ONE (07:06)
[2018-05-19] MEDS ORDERED: FentaNYL 100 MCG/2 ML INJECTION ONE (07:06)
[2018-05-19] MEDS ORDERED: BUPIVACAINE 0.75%/DEXTROSE 8.5% SPINAL 2 ML AMPULE IJ ONE (07:10)
[2018-05-19] MEDS ORDERED: LIDOCAINE 2% (100mg/5mL) 5ml PF SDV ONE (07:10)
[2018-05-19] MEDS ORDERED: SALINE FLUSH 10ml SYRINGE ONE (07:14)
[2018-05-19] MEDS ORDERED: EPHEDRINE 50mg/ml INJECTION ONE (07:14)
[2018-05-19] MEDS ORDERED: GLYCOPYRROLATE 0.4 MG/2 ML INJECTION ONE (07:37)
[2018-05-19] MEDS ORDERED: OXYTOCIN BOLUS BAG 30 UNIT/500 ML ML IV SCH (07:45)
--- NOTE | 2018-05-19 08:34 | Anesthesia Preoperative Report ---
Anesthesia Epidural/Spinal Rec - Date and Time Date: 05/19/18 Procedure: Labor Epidural Plan: Epidural - Vital Signs Vital Signs: Temperature 97.9 F 05/19/18 06:08 Pulse Rate 86 05/19/18 06:08 Respiratory Rate 18 05/19/18 06:08 Blood Pressure 117/75 05/19/18 06:08 Pulse Oximetry 98 05/19/18 06:08 /Para: P:3 - Medictaions & Allergies Inpatient Medications: Current Medications Lactated Ringer's (Lactated Ringers) 1,000 mls @ 150 mls/hr IV .Q6H40M [facility] Last Admin: 05/19/18 06:27 Dose: 150 mls/hr Isopropyl Alcohol (Nozin Nasal Swab) 1 each BARNEY 0600,1400,2200 [facility] Allergies/Adverse Reactions: Allergies Allergy/AdvReac Type Severity Reaction Status Date / Time No Known Allergies Allergy Verified 05/19/18 06:25 - Home Medications Home Medications: Home Medications Medication Instructions Recorded Confirmed Type Tablet 1 tab PO DAILY 05/19/18 05/19/18 History - Medical History Respiratory: DENIES: Asthma, Sleep Apnea Cardiovascular: DENIES: Hypertension Gastrointestional: DENIES: Gastroesophageal Reflux Disease Neuro/Musculoskeletal: Reports: Depression (post ) Renal/Endocrine: Reports: Other (nodule on thyroid) Other History: Reports: Now - Surgical History HEENT Surgeries: Reports: Eye Surgery (as a child) GI Surgery/Treatments: Reports: Cholecystectomy (2007) Reproductive Surgery/Treatment: Reports: Section Anesthesia Reactions: None Hx Family Anesthesia Reaction: No History of Motion Sickness: No - Social History Smoking Status: Never smoker Second Hand Exposure: No Substance Use Type: does not use - Pertinent Findings Lab Data: CBC and BMP 05/19/18 06:15 - Physical Exam Respiratory Exam: lungs clear, bilateral breath sounds equal Cardiovascular Exam: regular rate and rhythm - Airway Assessment Mallampati Score: II TMD: 3 Fingerbreadths Neck Extension: good Overall Assessment: no airway concerns - ASA ASA Score: 2 - Discussion Discussion: Discussed risks/options/alternatives of anesthesia and questions answered. Patient consents. Nursing pain assessment noted. Anesthesia Discussion: spouse Attestation Statement: Prior to the delivery of any anesthetic medication, I examined the patient, developed the plan, obtained the patient's consent and discussed the risk and benefits of the procedure with the patient/guardian.
[2018-05-19] MEDS ORDERED: NALOXONE 2 MG/2 ML INJECTION PFS IVP PRN (08:36)
[2018-05-19] MEDS ORDERED: SIMETHICONE 80 MG CHEWABLE TABLET PO PRN (08:40)
[2018-05-19] MEDS ORDERED: MEASLES-MUMPS-RUBELLA VACCINE 0.5ml INJECTION SQ ONE (08:40)
[2018-05-19] MEDS ORDERED: HYDROCORTISONE 2.5% CREAM 30gm RECTALLY PRN (08:40)
[2018-05-19] MEDS ORDERED: DiphenhydrAMINE 25 MG CAPSULE PO PRN (08:40)
[2018-05-19] MEDS ORDERED: ONDANSETRON ODT 4 MG TABLET PO PRN (08:40)
[2018-05-19] MEDS ORDERED: CALCIUM CARBONATE Chewable 500mg TABLET PO PRN (08:40)
[2018-05-19] MEDS ORDERED: ACETAMINOPHEN 500 MG TABLET PO PRN (08:40)
--- NOTE | 2018-05-19 08:40 | Operative Note ---
Operative Note - Date of Operation Date of Operation: 05/19/18 - General : 4 Para: 3 - Preoperative Diagnosis Previous Section - Postoperative Diagnosis same as preoperative - Procedure Repeat - Surgeon Surgeon: Leandro Swartz DO - Mail Rider OB Mail Rider: Smooth Laird, Surg. Assist - Anesthesia Anesthesia Provider: Tushar Lopez CRNA - Findings Findings: viable female - APGARS : 9/9 - [place] Weight [place] Weight (grams): 3444 - Name Name: Kylah - Description of Procedure Description of Procedure: See dictation
[2018-05-19] MEDS ORDERED: D5LR 1,000 ML IV SCH (08:45)
[2018-05-19] MEDS ORDERED: OXYTOCIN DRIP 30 UNIT/500 ML ML IV SCH (08:45)
[2018-05-19] MEDS ORDERED: DOCUSATE CALCIUM 240 MG CAPSULE PO SCH (09:00)
[2018-05-19] MEDS: IBUPROFEN 800 MG TABLET PO PRN ×2 (09:25→18:41)
[2018-05-19] MEDS: SIMETHICONE 80 MG CHEWABLE TABLET PO SCH ×3 (09:26→23:15)
[2018-05-19] MEDS: Oxycodone/Acetaminophen 5/325 1 TAB PO PRN ×4 (09:27→23:15)
--- NOTE | 2018-05-19 10:39 | Anesthesia Postoperative Note ---
- Date and Time Date: 05/19/18 Time: 10:38 - Status Patient Participated in Evaluation: Patient Participated in Person Vital Signs: Temperature 97.9 F 05/19/18 06:08 Pulse Rate 86 05/19/18 06:08 Respiratory Rate 18 05/19/18 06:08 Blood Pressure 117/75 05/19/18 06:08 Pulse Oximetry 98 05/19/18 06:08 Respiratory Function: Airway Patent Cardiovascular Function: Regular Pulse Mental Status: Alert and Oriented Pain Intensity: 0 Hydration: Taking PO Fluids Complications During Recover: None Apparent Post Anesthesia Care Notes: spinal decreasing levels appropriately. wiggles toes, slight numbness to legs remain. no complaints - Follow-Up Instructions Instructions: Per Surgeon
--- NOTE | 2018-05-19 16:11 | Operative Note ---
DATE OF SERVICE 05/19/2018 PREOPERATIVE DIAGNOSIS 1. Previous section. 2. Single live intrauterine at term. POSTOPERATIVE DIAGNOSIS 1. Previous section. 2. Single live intrauterine at term. PROCEDURE Repeat low transverse section via Pfannenstiel incision. SURGEON Leandro Swartz DO ADMINISTRATION MANAGER Smooth Laird, Research Engineer [employer] ANESTHESIA PROVIDER Tushar Lopez, JADON ANESTHESIA Spinal epidural FINDINGS Viable female infant named Kylah Graves, Apgars 9/9. [place] weight 3444 grams. COMPLICATIONS None. FINDINGS Normal uterus, tubes and ovaries. SPECIMENS None. ESTIMATED BLOOD LOSS 700 mL INDICATIONS FOR PROCEDURE This is a G4, P3 with three prior sections, who presented at term, 39 weeks gestational age for a repeat low transverse section via Pfannenstiel incision. Risks, benefits and alternatives to procedure were discussed with the patient. Questions were elicited and answered. DESCRIPTION OF PROCEDURE Patient was taken to the operating room where spinal epidural was obtained without difficulty. She was then prepped and draped in the dorsal supine position with a leftward tilt in the normal sterile fashion. At this time, a Pfannenstiel incision was made with a scalpel and carried through the underlying layers to the fascia. The fascia was then incised in the midline. The fascial incision was extended laterally with the Camarena scissors. Superior aspect of the fascial incision was grasped with a Carl clamp, elevated and rectus muscles dissected off sharply with the knife. Attention was turned to the lower aspect of the fascial incision which was grasped in a similar fashion , elevated and the rectus muscles dissected off sharply with the Camarena scissors. The rectus muscles were bluntly in the midline. The peritoneum was entered bluntly. The peritoneal incision was then extended superiorly and inferiorly with good visualization of the bladder. The bladder blade was then inserted and the vesicouterine peritoneum was identified. At this time decision was made to proceed without a bladder flap and the uterine incision was made in a transverse fashion. The uterine incision was then extended laterally with cephalad/caudad motion. Amniotomy was performed and the was delivered head first atraumatically. Nose and mouth were suctioned. Cord was clamped and cut and the was taken to the nurse who was waiting. At this time, the placenta was manually removed. The uterus was exteriorized and the uterus was cleared of all clot and debris. The uterine incision was repaired with 0 Monocryl in a running locked fashion. A [id number]-gblry of 3-0 chromic was used at the right hysterotomy angle to obtain excellent hemostasis. At this time, the uterus was returned to the abdomen and the gutters were cleared of all clot and debris. The peritoneum was closed with 3-0 Monocryl in a running fashion. The fascia was then closed with 0 Vicryl in a running fashion. Subcutaneous layer was closed with 2-0 plain gut and the skin was closed with 4-0 Monocryl and Prineo Dermabond. The patient tolerated the procedure well. Sponge, lap and needle counts correct x2 and patient was taken to recovery room in stable condition. KIANNA
[2018-05-20] MEDS: Oxycodone/Acetaminophen 5/325 1 TAB PO PRN ×5 (03:40→23:05)
[2018-05-20] MEDS: SIMETHICONE 80 MG CHEWABLE TABLET PO SCH ×5 (03:47→23:07)
[2018-05-20] MEDS: IBUPROFEN 800 MG TABLET PO PRN ×2 (08:00→16:21)
--- NOTE | 2018-05-20 10:37 | OB/GYN Progress Note ---
OB-PP Progress Note - General PPD1 Maternal Group B Strep: Positive Maternal Rh: positive Maternal Rubella Status: Equivical - Subjective Date: 05/20/18 Lochia: Minimal Pain: controlled Voiding: voiding Nausea or Vomiting Present: No - Objective Vital Signs: Last Vital Signs Temp 97.9 F 05/20/18 08:00 Pulse 79 05/20/18 08:00 Resp 16 05/20/18 08:00 BP 110/66 05/20/18 08:00 Pulse Ox 100 05/20/18 08:00 General: alert and oriented Abdomen: fundus firm, non-tender Incision: dressed Extremities: non-tender Edema: none Laboratory: Laboratory Results - last 24 hr 05/19/18 13:06 WBC 14.9 H RBC 3.86 L Hgb 10.9 L D Hct 33.0 L D MCV 85.5 MCH 28.2 MCHC 33.0 RDW Std Deviation 40.2 Plt Count 179 MPV 10.1 - Assessment Assessment: SP, Repeat C/S - Plan Plan: routine care
[2018-05-20] MEDS: DOCUSATE CALCIUM 240 MG CAPSULE PO SCH (16:15)
[2018-05-21] MEDS: IBUPROFEN 800 MG TABLET PO PRN (03:30)
[2018-05-21] MEDS: Oxycodone/Acetaminophen 5/325 1 TAB PO PRN ×2 (03:30→07:47)
[2018-05-21 03:45] VITALS: RESP 16
[2018-05-21 07:34] VITALS: TEMP 98.6
[2018-05-21] MEDS: DOCUSATE CALCIUM 240 MG CAPSULE PO SCH (08:46)
[2018-05-21] MEDS: SIMETHICONE 80 MG CHEWABLE TABLET PO SCH (08:46)
--- NOTE | 2018-05-21 11:25 | OB/GYN Progress Note ---
OB-PP Progress Note - General PPD2 POD:: POD2 Maternal Group B Strep: Positive Maternal Rh: positive Maternal Rubella Status: Equivical - Subjective Date: 05/21/18 Lochia: Minimal Pain: controlled (Dysuria) Voiding: voiding Nausea or Vomiting Present: No - Objective Vital Signs: Last Vital Signs Temp 98.6 F 05/21/18 07:33 Pulse 83 05/21/18 09:15 Resp 16 05/21/18 03:30 BP 132/72 05/21/18 09:15 Pulse Ox 98 05/21/18 09:15 Urine Output: good General: alert and oriented Cardiovascular: regular rate,rhythm Respiratory: non-labored Abdomen: fundus firm, non-tender Incision: normal, dressed Extremities: non-tender Edema: none - Assessment Assessment: SP, Repeat C/S - Plan Plan: routine care (Urine CX for dysuria will hold off on ABX since only symptom likely urethral truama from catheter advise when to RTC. ), discharge home
[2018-05-25 11:05] VITALS: BP 132/72; PULSE 83; O2SAT 98
== END 2018-05-21 13:10 | disposition home or self-care (01) | DRG 766 ==
LOC: MC 05:31
PROVIDERS: ADMIT Obstetrics & Gynecology; ATTEND Obstetrics & Gynecology